=== PATIENT | male | born 1960 | race Two or more races ===

== ENCOUNTER 2022-10-29 11:46 | Emergency (ER) | payer OTHER ==
[~2022-10-29] VITALS: Ht 177.8 cm; Wt 92.5 kg
[2022-10-29] MEDS ORDERED: TESTOSTERO200 MG/11 IM (12:11)
[2022-10-29] MEDS ORDERED: ATORVASTATIN CA40 MG PO (12:11)
[2022-10-29] MEDS ORDERED: LEVOTHYROXINE137 MCG PO (12:11)
== END 2022-10-29 21:49 | disposition home or self-care (01) ==
LOC: ER 11:46
DX: R10.31 Right lower quadrant pain (principal); Z88.0 Allergy status to penicillin

== ENCOUNTER 2023-11-26 00:48 | Emergency (ER) | payer OTHER ==
[~2023-11-26] VITALS: Ht 177.8 cm; Wt 89.8 kg
[~2023-11-26 00:48] MED LIST: ATORVASTATIN CA40 MG PO; LEVOTHYROXINE137 MCG PO; TESTOSTERO200 MG/11 IM
[2023-11-26] MEDS ORDERED: HYDROCORTISONE20 MG (01:38)
[2023-11-26] MEDS ORDERED: CRESTOR40 MG (01:38)
[2023-11-26] MEDS ORDERED: ZANAFLEX4 M1 (01:39)
[2023-11-26] MEDS ORDERED: FENOFIBRIC ACI105 MG (01:39)
[2023-11-26] MEDS ORDERED: MAXIMUM ENERGY1 EACH (01:39)
[2023-11-26] MEDS ORDERED: NEURONTIN300 MG (01:39)
[2023-11-26] MEDS ORDERED: RINGERS SOLUTION,LACTATED 1,000 ML IV STA (04:29)
[2023-11-26] MEDS ORDERED: ONDANSETRON HCL 2 MG/ML VIAL IV STA (04:31)
[2023-11-26 05:20] LABS: HEMATOCRIT 44.4 % (39.0-48.0); HEMOGLOBIN 15.1 g/dL (13-16.00); MEAN CELL VOLUME 78.6 fL (80.0-100.00); MEAN CORPUSCULAR HEMOGLOBIN 26.8 pg (27.00-32.0); MEAN CORPUSCULAR HGB CONC 34.1 g/dl (32.0-36.0); PLATELET COUNT 188 K/uL (150-450); RED BLOOD COUNT 5.65 M/uL (4.00-6.00); RED CELL DISTRIBUTION WIDTH 15.5 % (11.5-14.5)
[2023-11-26 05:37] LABS: ALBUMIN 4.1 gm/dL (3.4-5.0); BILIRUBIN TOTAL 0.89 mg/dL (0.3-1.2); CALCIUM 9.2 mg/dL (8.5-10.1); CREATININE SERUM 1.58 mg/dL (0.70-1.30); GFR 44.37; GLOBULINA 3.1 G/DL (2.4-3.5); TOTAL PROTEIN 7.2 gm/dL (6.4-8.2)
[2023-11-26] MEDS ORDERED: HYDROCORTISONE SODIUM SUCC/PF 100 MG VIAL IV STA (07:20)
[2023-11-26 08:58] LABS: URINE APPEARANCE Clear; URINE BILIRRUBIN Negative (NEGATIVE); URINE BLOOD Trace; URINE COLOR Dark Yellow; URINE GLUCOSE Negative (NEGATIVE); URINE LEUKOCYTE Negative; URINE NITRATE Negative; URINE PROTEIN Trace (NEGATIVE); URINE UROBILINOGEN 0.2 E.U./dl
[2023-11-26 09:02] LABS: URINE EPITHELIAL CELLS 32.1 uL (0.0-38.8); URINE RBC 7.9 uL (0.0-20.8); URINE WBC 10.8 uL (0.0-23.2)
== END 2023-11-26 10:25 | disposition home or self-care (01) ==
LOC: ER 00:49
DX: U07.1 COVID-19 (principal); Z88.0 Allergy status to penicillin; R42 Dizziness and giddiness
CPT/HCPCS: 36415; 70450; 93005; 96365; 96366; 99284; J2405; J3490